=== PATIENT | male | born 1975 | race Caucasian/White ===

== ENCOUNTER 2019-06-11 12:39 | Outpatient (REF) | payer MEDICAID, SELFPAY | END 2019-06-11 12:59 | LOC: LBN 12:39 | PROVIDERS: Visit Provider Podiatrist | DX: L02.611 Cutaneous abscess of right foot (principal) | CPT/HCPCS: 87077; 87070; 87186; 87205 ==

== ENCOUNTER 2021-05-24 08:37 | Outpatient (CLI) | payer MEDICAID, SELFPAY ==
--- NOTE | 2021-05-24 08:30 | RT.EKG_ITS ---
APPROVED REPORT Exam: Resting ECG Reason for Exam: NC Patient Location: O HR:60 bpm ECG Measurements Heart Rate 60 AXIS DE 154 P -13 QRSd 115 QRS -19 QT 412 T 8 QTc 412 Conclusion Sinus rhythm...normal P axis, V-rate 50- 99 Probable left atrial enlargement...P >50mS, <-0.10mV V1 Incomplete right bundle branch block...QRSd >112, terminal axis(90,270) Inferior infarct, old...Q >35mS, II III aVF
== END 2021-05-24 08:38 | disposition home or self-care (01) ==
LOC: DI.CARD 08:38
PROVIDERS: Visit Provider Internal Medicine Cardiovascular Disease
DX: I25.2 Old myocardial infarction (principal); I45.19 Other right bundle-branch block
CPT/HCPCS: 93010